=== PATIENT | male | born 1985 | race Caucasian/White ===

== ENCOUNTER 2023-05-13 13:03 | Emergency (ER) | payer OTHER ==
[2023-05-13 13:23] VITALS: BP 131/46; PULSE 93; RESP 17; TEMP 98.7; BMI 20.3
== END 2023-05-13 15:29 | disposition home or self-care (01) ==
LOC: JERFT 13:03
PROC: 0HQFXZZ Repair Right Hand Skin, External Approach (ICD-10-PCS; principal; 2023-05-13)
PROC: 2W3JX1Z Immobilization of Right Finger using Splint (ICD-10-PCS; 2023-05-13)
DX: S61.210A Laceration without foreign body of right index finger without damage to nail, initial encounter (principal); W27.5XXA Contact with paper-cutter, initial encounter; Y99.0 Civilian activity done for income or pay
CPT/HCPCS: 99283-25